=== PATIENT | male | born 1990 | race Caucasian/White ===

== ENCOUNTER 2021-05-25 13:10 | Emergency (ER) | payer OTHER ==
[2021-05-25 13:20] VITALS: BP 115/69; PULSE 70; TEMP 98.5; BMI 23.5
[2021-05-25] MEDS ORDERED: KETOROLAC TROMETHAMINE 60 MG/2 ML VIAL IM ONE (13:33)
[2021-05-25] MEDS ORDERED: KETOROLAC TROMETHAMINE 30 MG/1 ML VIAL ONE (13:35)
[2021-05-25] MEDS ORDERED: DIPHTH,PERTUSS(ACELL),TET 0.5 ML DISP.SYRIN IM ONE (13:39)
== END 2021-05-25 15:03 | disposition home or self-care (01) ==
LOC: JER 13:10
PROC: 0HQFXZZ Repair Right Hand Skin, External Approach (ICD-10-PCS; principal; 2021-05-25)
PROC: 3E0233Z Introduction of Anti-inflammatory into Muscle, Percutaneous Approach (ICD-10-PCS; 2021-05-25)
PROC: 3E0234Z Introduction of Serum, Toxoid and Vaccine into Muscle, Percutaneous Approach (ICD-10-PCS; 2021-05-25)
DX: S61.011A Laceration without foreign body of right thumb without damage to nail, initial encounter (principal); S52.124A Nondisplaced fracture of head of right radius, initial encounter for closed fracture
CPT/HCPCS: 73110-TC-RT-FY; 73130-TC-RT-FY; 99284-25